=== PATIENT | female | born 1995 | race Hispanic/Latino ===

== ENCOUNTER 2024-01-30 11:32 | Outpatient (CLI) | payer OTHER | END 2024-01-30 11:33 | disposition home or self-care (01) | LOC: CSHULT 11:32 | PROVIDERS: ATTEND Family Medicine | DX: O09.892 Supervision of other high risk pregnancies, second trimester (principal) | CPT/HCPCS: 76805 ==

== ENCOUNTER 2024-05-07 05:22 | Inpatient (IN) | payer MEDICAID, OTHER ==
[2024-05-07] MEDS ORDERED: Methylergonovine 0.2 MG/ML VIAL IM PRN (06:01)
[2024-05-07] MEDS ORDERED: Famotidine/PF 20 mg/2ml Vial SLOW IVP PRN (06:01)
[2024-05-07] MEDS ORDERED: Promethazine HCl 25 MG/ML VIAL IM PRN ×3 (06:01→10:26)
[2024-05-07] MEDS ORDERED: Misoprostol 200 MCG TAB PR PRN (06:01)
[2024-05-07] MEDS ORDERED: hydrALAZINE 20 MG/ML VIAL SLOW IVP PRN ×2 (06:01→10:26)
[2024-05-07] MEDS ORDERED: Carboprost 250 MCG/ML AMP IM PRN (06:01)
[2024-05-07] MEDS ORDERED: Diphenoxylate HCl/Atropine Tablet PO PRN (06:01)
[2024-05-07] MEDS ORDERED: Ondansetron PF 4 MG/2 ML Vial IVP PRN ×3 (06:01→10:26)
[2024-05-07] MEDS ORDERED: Tranexamic Acid 1,000 MG/10 ML VIAL IVP PRN (06:01)
[2024-05-07] MEDS ORDERED: Bicitra 30 ML UDCUP PO PRN (06:01)
[2024-05-07 06:02] VITALS: BMI 32.6
[2024-05-07] MEDS ORDERED: Lactated Ringer's 1,000 ML IV SCH (06:15)
[2024-05-07 06:20] LABS: Hematocrit 35.1 % (34.9-44.5); Hemoglobin 12.7 g/dL (12.0-15.5); Mean Corpuscular HGB CONC 36.2 g/dL (32.0-36.0); Mean Corpuscular Hemoglobin 31.1 pg (27.0-33.0); Mean Corpuscular Volume 85.8 fL (81.6-98.3); Mean Platelet Volume 10.9 fL (7.4-10.4); Platelet Count 244 10x3/uL (150-450); RBC Distribution Width 13.7 % (11.5-14.5); Red Blood Cell (RBC) Count 4.09 10x6/uL (3.90-5.03); White Blood Cell (WBC) Count 6.7 10x3/uL (3.5-10.5)
[2024-05-07 06:56] LABS: Syphilis Antibody Nonreactive (Nonreactive); Syphilis Antibody Index 0.05 S/CO (<1.00 Non-Reactive)
[2024-05-07 06:57] LABS: HBsAg Index 0.18 S/CO (0-0.99); Hep B Surf Ag - L&D Non-Reactive S/CO (NonReactive)
[2024-05-07] MEDS: CEFAZOLIN 2 GM in Sodium Chloride 0.9% 100 ML IVPB SCH (07:00)
[2024-05-07] MEDS ORDERED: Communication Order-Pharmacy FS SCH (09:45)
[2024-05-07] MEDS ORDERED: Naloxone HCl 0.4 mg/ml Vial IV PRN (09:45)
[2024-05-07] MEDS ORDERED: Moisturizing Cream (Eucerin) 113 GM JAR TOP PRN (09:45)
[2024-05-07] MEDS ORDERED: diphenhydrAMINE 50 MG/ML VIAL IVP PRN (09:45)
[2024-05-07] MEDS ORDERED: Meperidine HCl/PF 25 MG (1 mL) VIAL SLOW IVP PRN (09:45)
[2024-05-07] MEDS: Oxytocin 30 units/NS 500 ML 500 ML IV SCH (09:45)
[2024-05-07] MEDS ORDERED: Naloxone HCl 0.4 mg/ml Vial IVP PRN ×2 (09:45)
[2024-05-07] MEDS ORDERED: fentaNYL 50 mcg/mL 1 mL Vial SLOW IVP PRN (09:45)
[2024-05-07] MEDS ORDERED: Lanolin Ointment 7 GM TUBE TOP PRN (10:26)
[2024-05-07] MEDS ORDERED: diphenhydrAMINE 25 MG CAP PO PRN (10:26)
[2024-05-07] MEDS ORDERED: Bisacodyl 10 MG SUPP PR PRN (10:26)
[2024-05-07] MEDS: Morphine PF 10 MG/10 ML VIAL ONE (10:29)
[2024-05-07] MEDS: Phenylephrine 40 MG/NS 250 ML 250 ML ONE (10:29)
[2024-05-07] MEDS: Dexmedetomidine 200 MCG/2 ML VIAL ONE (10:29)
[2024-05-07] MEDS: Oxytocin 10 UNITS/ML VIAL ONE (10:30)
[2024-05-07] MEDS: Etomidate 40 MG (20 mL) VIAL ONE (10:30)
[2024-05-07] MEDS: Dexamethasone 4 mg/ml Vial ONE (10:30)
[2024-05-07] MEDS: Lidocaine 2% MPF 10 ML AMP (For Epidural Use) ONE (10:30)
[2024-05-07] MEDS: Ondansetron PF 4 MG/2 ML Vial ONE (10:30)
[2024-05-07] MEDS: Ketorolac Tromethamine 30 MG (1 mL) VIAL ONE (10:30)
[2024-05-07] MEDS: Sterile Water 10 ML ONE (10:30)
[2024-05-07] MEDS: Sodium Chloride 0.9% 10 ML ONE (10:30)
[2024-05-07] MEDS: Ondansetron PF 4 MG/2 ML Vial IVP PRN (11:44)
[2024-05-07] MEDS: Boostrix 0.5 ML (Tdap) VIAL (>/=7 yrs of age) IM ONE (13:56)
[2024-05-07] MEDS ORDERED: Ketorolac Tromethamine 30 MG (1 mL) VIAL IVP SCH (14:00)
[2024-05-07] MEDS: Ketorolac Tromethamine 30 MG (1 mL) VIAL IVP SCH (14:13)
[2024-05-07] MEDS: Ferrous Sulfate 325 MG TAB PO SCH (19:13)
[2024-05-07] MEDS: Docusate 100 MG CAP PO SCH (19:32)
[2024-05-07] MEDS ORDERED: HYDROcodone/Acetaminophen 5/325 mg Tablet PO PRN (21:45)
[2024-05-08 03:33] LABS: Hematocrit 27.2 % (34.9-44.5); Mean Corpuscular HGB CONC 36.8 g/dL (32.0-36.0); Mean Corpuscular Hemoglobin 31.9 pg (27.0-33.0); Mean Corpuscular Volume 86.9 fL (81.6-98.3); Mean Platelet Volume 11.1 fL (7.4-10.4); Platelet Count 217 10x3/uL (150-450); RBC Distribution Width 13.8 % (11.5-14.5); Red Blood Cell (RBC) Count 3.13 10x6/uL (3.90-5.03); White Blood Cell (WBC) Count 9.7 10x3/uL (3.5-10.5)
[2024-05-08] MEDS: Prenatal Vitamin 1 TAB PO SCH (08:22)
[2024-05-08] MEDS: HYDROcodone/Acetaminophen 5/325 mg Tablet PO PRN (12:08)
[2024-05-08] MEDS: Ibuprofen 800 MG TAB PO SCH (14:04)
[2024-05-08] MEDS: Simethicone Chewable 80 MG TAB PO PRN (22:15)
[2024-05-09 11:39] VITALS: BP 103/64; TEMP 98.4
[2024-05-09] MEDS: Measles/Mumps/Rubella 10 MCG/0.5 ML VIAL SC SCH (16:29)
== END 2024-05-09 18:00 | disposition home or self-care (01) | DRG 788 ==
LOC: CSHLD 05:22 → CSHPP 10:34
PROVIDERS: ADMIT Family Medicine; ATTEND Family Medicine
PROC: 10D00Z1 Extraction of Products of Conception, Low, Open Approach (ICD-10-PCS; principal; 2024-05-07)
DX: O34.211 Maternal care for low transverse scar from previous cesarean delivery (principal); Z3A.39 39 weeks gestation of pregnancy; Z37.0 Single live birth
CPT/HCPCS: 36415; 51702; 85027; 86780; 86850; 86900; 86901; 87340; 90707; J1100; J1885; J2274; J2405; J2590; J3490